=== PATIENT | male | born 1990 | race Two or more races ===

== ENCOUNTER 2020-08-04 00:06 | Emergency (ER) | payer OTHER ==
[2020-08-04 00:41] VITALS: BP 122/80; PULSE 69; TEMP 98.6; BMI 23.9
--- NOTE | 2020-08-04 00:42 | PDOC ---
History of Present Illness - General Chief Complaint: Respiratory Stated Complaint: COVID POSITIVE Time Seen by Provider: 08/04/20 00:09 History Source: Patient Exam Limitations: No Limitations - History of Present Illness Initial Comments: 30 yo M no significant PMH presents with SOB. He states that he recent lost his sense of taste and smell, was tested for COVID-19 at an urgent care, was called with a positive result today. He states he was having shortness of breath this evening, so he came for evaluation. He states he does not have coughing unless he speaks loudly. Denies fever, cp. No exertional dyspnea. Past History - Medical History Allergies/Adverse Reactions: Allergies Allergy/AdvReac Type Severity Reaction Status Date / Time No Known Allergies Allergy Verified 08/04/20 00:35 Home Medications: Ambulatory Orders NK [No Known Home Medication] 08/04/20 Review of Systems - Review of Systems Able to Perform ROS?: Yes Comments:: GENERAL/CONSTITUTIONAL: No fever or chills. No weakness. HEAD, EYES, EARS, NOSE AND THROAT: No change in vision. No ear pain or discharge. No sore throat. CARDIOVASCULAR: No chest pain. No shortness of breath. RESPIRATORY: No cough, wheezing, or hemoptysis. GASTROINTESTINAL: No nausea, vomiting, diarrhea or constipation. GENITOURINARY: No dysuria, frequency, or change in urination. MUSCULOSKELETAL: No joint or muscle swelling or pain. No neck or back pain. SKIN: No rash. NEUROLOGIC: No headache, vertigo, loss of consciousness, or change in strength/sensation. ENDOCRINE: No increased thirst. No abnormal weight change. HEMATOLOGIC/LYMPHATIC: No anemia, easy bleeding, or history of blood clots. ALLERGIC/IMMUNOLOGIC: No hives or skin allergy. *Physical Exam - Physical Exam GENERAL: Awake, alert, and fully oriented, in no acute distress HEAD: No signs of trauma EYES: PERRLA, EOMI, sclera anicteric, conjunctiva clear ENT: Auricles normal inspection, hearing grossly normal, nares patent, oropharynx clear without exudates. Moist mucosa NECK: Normal ROM, supple, no lymphadenopathy, JVD, or masses LUNGS: Breath sounds equal, clear to auscultation bilaterally. No wheezes, and no crackles. Speaking full sentences. HEART: Regular rate and rhythm, normal S1 and S2, no murmurs, rubs or gallops ABDOMEN: Soft, nontender, normoactive bowel sounds. No guarding, no rebound. No masses EXTREMITIES: Normal range of motion, no edema. No clubbing or cyanosis. No cords, erythema, or tenderness NEUROLOGICAL: Cranial nerves II through XII grossly intact. Normal speech, no rmal gait. Motor and sensation intact SKIN: Warm, dry, normal turgor, no rashes or lesions noted. ED Treatment Course - RADIOLOGY Radiology Studies Ordered: Category Date Time Status CHEST X-RAY PORTABLE* [RAD] Stat Radiology 08/04/20 00:09 Ordered Medical Decision Making - Medical Decision Making 08/04/20 00:42 Pt with normal O2Sat at triage. Will check CXR. Will check pulse ox with ambulation. 08/04/20 02:19 CXR reviewed, no significant findings. I had him ambulate in the ED, out to the outdoor screening area. O2Sat is 100% with exertion. Reassured patient that there are no signs of severe illness at present. If he has difficulty speaking or exerting himself, return to the ED. Discharge - Discharge Information Problems reviewed: Yes Clinical Impression/Diagnosis: COVID-19 Condition: Stable Disposition: HOME - Follow up/Referral - Patient Discharge Instructions Patient Printed Discharge Instructions: DI for COVID-19 (Suspected or Confirmed ), [facility]-Coronavirus Instructions, [facility] COVID-19 Isolation Protocol - Post Discharge Activity
== END 2020-08-04 02:17 | disposition home or self-care (01) ==
LOC: FER 00:06
DX: U07.1 COVID-19 (principal); R06.02 Shortness of breath
CPT/HCPCS: 71045-TC-FY; 99283-25